=== PATIENT | female | born 1995 | race Two or more races ===

== ENCOUNTER 2019-08-10 19:55 | Emergency (ER) | payer SELFPAY ==
[~2019-08-10] VITALS: Ht 160 cm; Wt 63.5 kg
--- NOTE | 2019-08-10 20:18 | NUR ---
[facility] AT BEDSIDE FOR WOUND CARE
[2019-08-10] MEDS ORDERED: GELATIN SPONGE,ABSORBABLE 1 SPONGE SPONGE TP ONE ×2 (20:22→20:30)
[2019-08-10] MEDS ORDERED: TDAP [DIPH/PERTUSSIS/TET] 0.5 ML VIAL IM ONE ×2 (20:29→20:30)
[2019-08-10] MEDS ORDERED: LIDOCAINE HCL/PF 1% 30 ML VIAL TP ONE (20:30)
[2019-08-10 21:51] VITALS: BP 115/75
--- NOTE | 2019-08-10 22:12 | NUR ---
Patient discharged to home in stable condition. Written and verbal after care instructions given. Patient verbalizes understanding of instruction.
== END 2019-08-10 22:13 | disposition home or self-care (01) ==
LOC: ER 19:56
DX: S61.512A Laceration without foreign body of left wrist, initial encounter (principal); E03.9 Hypothyroidism, unspecified; W26.8XXA Contact with other sharp object(s), not elsewhere classified, initial encounter; Y93.89 Activity, other specified; Y92.89 Other specified places as the place of occurrence of the external cause; Y99.8 Other external cause status
CPT/HCPCS: 12002; 90471; 90715; 99283; A6403 ×3; J3490

== ENCOUNTER 2019-08-21 22:39 | Emergency (ER) | payer SELFPAY ==
[~2019-08-21] VITALS: Ht 160 cm; Wt 69.9 kg
[2019-08-21 22:39] VITALS: BP 136/85
--- NOTE | 2019-08-21 23:15 | NUR ---
[facility] AT BEDSIDE FOR SUTURE REMOVAL.
== END 2019-08-21 23:27 | disposition home or self-care (01) ==
LOC: ER 22:41
DX: S61.412D Laceration without foreign body of left hand, subsequent encounter (principal); E03.9 Hypothyroidism, unspecified; Z98.890 Other specified postprocedural states; X58.XXXD Exposure to other specified factors, subsequent encounter